=== PATIENT | male | born 1950 | race Caucasian/White ===

== ENCOUNTER 2019-05-26 09:59 | Emergency (ER) | payer MEDICARE, OTHER ==
--- NOTE | 2019-05-26 11:08 | EDM.PDOC ---
ED HPI GENERAL MEDICAL PROBLEM - General Chief Complaint: Neuro Symptoms/Deficits Stated Complaint: POSSIBLE TIA/STROKE Time Seen by Provider: 05/26/19 10:30 Source of Information: Reports: Patient History Limitations: Reports: No Limitations - History of Present Illness INITIAL COMMENTS - FREE TEXT/NARRATIVE: 69-year-old male who this morning about 1 hour ago had a 1-2 minute episode of facial weakness on the right side, expressive aphasia, drooling, and right hand weakness. It resolved fairly rapidly but he has physicians in the family and made some phone calls and decided to come in to get checked. His symptoms have completely resolved. He believes he has had an episode similar to this a couple of times in the past, the last was several years ago. He has no headache, no pain, no shortness of breath, no nausea or vomiting or palpitations. Onset: Sudden Duration: Minutes: (2 minutes) - Related Data Allergies Allergy/AdvReac Type Severity Reaction Status Date / Time morphine Allergy Anaphylactic Verified 05/26/19 10:29 Shock Home Meds: Home Meds Acetaminophen/Caffeine [Excedrin Tension Headache Cplt] 1 tab PO TID 05/26/19 [ History] Allopurinol [Zyloprim] 200 mg PO DAILY 05/26/19 [History] Cholecalciferol (Vitamin D3) [Vitamin D3] 1 cap PO DAILY 05/26/19 [History] Lactobacill 46/B.animal/Inulin [Probiotic-10 10 Bill Cell Cap] 1 tab PO DAILY [History] Losartan [Cozaar] 50 mg PO DAILY 05/26/19 [History] Pravastatin [Pravachol] 40 mg PO BEDTIME 05/26/19 [History] Past Medical History Cardiovascular History: Reports: High Cholesterol, Hypertension Neurological History: Reports: TIA - Past Surgical History Other GI Surgeries/Procedures: gout Musculoskeletal Surgical History: Reports: Other (See Below) Other Musculoskeletal Surgeries/Procedures:: back surgery Social & Family History - Tobacco Use Smoking Status *Q: Never Smoker - Caffeine Use Caffeine Use: Reports: Coffee - Recreational Drug Use Recreational Drug Use: No ED ROS GENERAL - Review of Systems Review Of Systems: See Below Constitutional: Denies: Fever, Chills HEENT: Denies: Vision Change Respiratory: Denies: Shortness of Breath Cardiovascular: Denies: Chest Pain, Palpitations GI/Abdominal: Denies: Nausea, Vomiting : Reports: No Symptoms Skin: Reports: No Symptoms Neurological: Reports: Other (Only complaints were expressive aphasia, right facial droop and drooling and right hand weakness). Denies: Paresthesia Psychiatric: Reports: No Symptoms ED EXAM, NEURO - Physical Exam Exam: See Below Exam Limited By: No Limitations General Appearance: Alert, No Apparent Distress Eye Exam: Bilateral Eye: EOMI, Normal Inspection Head Exam: Atraumatic Neck: Normal Inspection. No: Lymphadenopathy (R), Lymphadenopathy (L) Respiratory/Chest: No Respiratory Distress, Lungs Clear Cardiovascular: Regular Rate, Rhythm. No: Extra Beats Neurological: Alert, Normal Mood/Affect, No Motor/Sensory Deficits, Oriented x 3 Psychiatric: Normal Affect, Normal Mood Skin Exam: Warm, Dry Course - Vital Signs Last Recorded V/S: Last Vital Signs Temp 96.1 F 05/26/19 11:17 Pulse 71 05/26/19 11:48 Resp 20 05/26/19 11:17 BP 167/90 H 05/26/19 11:48 Pulse Ox 95 05/26/19 10:32 - Orders/Labs/Meds Meds: Medications Discontinued Medications Generic Name Dose Route Start Last Admin Trade Name Freq PRN Reason Stop Dose Admin Metoprolol Tartrate 25 mg 05/26/19 11:37 05/26/19 11:48 Lopressor PO 05/26/19 11:38 25 mg ONETIME ONE Administration - Re-Assessments/Exams Free Text/Narrative Re-Assessment/Exam: 05/26/19 12:[address] without contrast was obtained, the patient was given 25 mg of oral Lopressor. 05/26/19 14:[address] was normal, blood pressure normalized. Patient was given a copy of his CT scan and will recheck next week when home. He will return sooner if symptoms recur. He will also take a full dose aspirin daily. Departure - Departure Time of Disposition: 12:26 Disposition: Home, Self-Care 01 Clinical Impression: TIA (transient ischemic attack) - Discharge Information Instructions: Transient Ischemic Attack, [id number] Referrals: PCP,None [Primary Care Provider] - Forms: ED Department Discharge Care Plan Goals: Continue full dose aspirin daily, and return anytime if symptoms recur especially if they are persistent. [facility], and take your copy of the CAT scan with to your recheck.
[2019-05-26] MEDS ORDERED: Metoprolol Tartrate 25 MG Tab PO ONE (11:37)
--- NOTE | 2019-05-26 12:07 | CRLCT ---
INDICATION: Right-sided TIA symptoms TECHNIQUE: Head CT without contrast. COMPARISON: None FINDINGS: CSF spaces: Within normal limits for age. Brain parenchyma: There are nonspecific low attenuation white matter changes consistent with chronic microvascular disease. No sign of mass, hemorrhage, or midline shift. Skull base and calvarium: The visualized paranasal sinuses and mastoid air cells demonstrate no acute or significant findings. The visualized orbits are grossly unremarkable. No skull fractures. There is intracranial atherosclerosis. IMPRESSION: 1. No acute findings. 2. Nonspecific white matter disease, typical of chronic microvascular disease. Please note that all CT scans at this facility use dose modulation, iterative reconstruction, and/or weight-based dosing when appropriate to reduce radiation dose to as low as reasonably achievable. Dictated by Otilia Hanson MD @ May 26 2019 12:03PM Signed by Dr. Otilia Hanson @ May 26 2019 12:05PM
== END 2019-05-26 12:25 | disposition home or self-care (01) ==
LOC: JP.ED 09:59
DX: G45.9 Transient cerebral ischemic attack, unspecified (principal); E78.00 Pure hypercholesterolemia, unspecified; I10 Essential (primary) hypertension; Z88.5 Allergy status to narcotic agent; Z79.899 Other long term (current) drug therapy
CPT/HCPCS: 70450; 99284; A9270; 99283